=== PATIENT | female | born 1990 | race African-American/Black ===

== ENCOUNTER → 2017-08-09 | Outpatient (CLI) | payer OTHER ==
[~2017-08-09] MED LIST: IRON150C19 PO; ONDA4TAB PO; VITA-175 PO
--- NOTE | 2017-08-09 12:25 | RADIOLOGY IMAGING REPORT ---
FACILITY: [facility] PATIENT NAME: Maximo Borges : 1990 MR: [id number] V: [id number] EXAM DATE: ORDERING PHYSICIAN: GABRIELLE WARD TECHNOLOGIST: [place] [facility] [place] Patient: Maximo Borges : 1990 Visit/Account:[id number] Date of Sevice: 08/09/2017 PELVIC HISTORY: Fibroid seen on CT, pelvic pain and dysmenorrhea TECHNIQUE: Transabdominal ultrasound pelvis. COMPARISON: CT abdomen pelvis November 08, 2016 FINDINGS: Uterus: ; 7.4 cm length x 4.1 cm AP x 5.3 cm transverse. Myometrium: There is a 5.3 x 4.5 x 6.4 cm pedunculated fibroid projecting from the superior aspect of the uterine fundus. The stalk measures 2.1 cm in diameter.. Endometrium: Unremarkable; double thickness 3.8 mm. Cervix: Grossly negative. Ovaries: Right - 5.2 x 2.1 x 2.7 cm Left - 5.5 x 2 x 2.9 cm Blood flow is documented in each ovary by duplex Doppler ultrasound. Adnexa: Grossly unremarkable. Free pelvic fluid: None. IMPRESSION: There is a 5.3 x 4.5 x 6.4 cm pedunculated fibroid projecting along the superior aspect of the uterin e fundus as described above Report Dictated By: Diana Lopez MD at 08/09/2017 12:18 PM Report E-Signed By: Diana Lopez MD at 08/09/2017 12:21 PM WSN:[id number]
== END ==
LOC: US 03:20
PROVIDERS: ATTEND Nurse Practitioner Family
DX: D25.9 Leiomyoma of uterus, unspecified (principal)
CPT/HCPCS: 76856

== ENCOUNTER 2017-10-03 11:46 | Emergency (ER) | payer OTHER ==
[~2017-10-03 11:46] MED LIST changes: +IBUP800T37 PO; +LEVO1TAB31 PO; +MULT-865 PO
[2017-10-03 11:53] VITALS: BP 119/94
--- NOTE | 2017-10-03 12:07 | ER Report ---
History and Physical Time Seen By MD: 12:07 Hx. 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 PT STATES IT SOUNDED LIKE A BOMB WENT OFF. PT IS COMPLAINING OF RINGING IN RIGHT EAR AND RIGHT EYE TWITCHING. THIS HAPPENED YESTERDAY. PT INITALLY HAD A HEACHACHE BUT THAT HAS RESOLVED. HPI/ROS CHIEF COMPLAINT: Ringing in right ear HISTORY OF PRESENT ILLNESS: 27-year-old female patient presents to emergency room with complaint of ringing in her right ear. 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 Patient states that she had pain to the right ear, she had some twitching in her right eye. Patient states that she's not noted any vision changes in right eye. She states that she does have a persistent ringing. She is concerned about possible injury to the ear and decrease hearing. Patient denies having any fevers, chills, nausea, vomiting or diarrhea. Patient denies having any drainage from the ears. Allergies: Coded Allergies: No Known Drug Allergies (Unverified , 11/08/16) Home Meds Reported Medications Ibuprofen (IBUPROFEN) 800 Mg Tablet, 1 TAB PO Q8H, #30 TAB TAKE WITH FOOD EVERY 8 HOURS, DURING MENSES 08/23/17 Multivitamin (DAILY MULTIPLE VITAMIN) 1 Each Tablet, 1 TAB PO DAILY 08/23/17 Levonorgestrel-Eth Estradiol (AVIANE) 1 Each Tablet, 1 EACH PO DAILY 08/23/17 Vitamin B Complex (B COMPLEX) 1 Each Tablet, 1 EACH PO 11/08/16 Iron Polysaccharides Complex (POLYSACCHARIDE IRON 150) 150 Mg Capsule, 150 MG PO , CAPSULE 11/08/16 Past Medical/Surgical History Patient has a past medical history of iron deficiency anemia. Smoking Status: Never Smoker Hx Substance Use Disorder: No Hx Alcohol Use: No Constitutional Vital Sign - Last 24 Hours 10/03/17 10/03/17 11:53 12:33 Temp 97.5 Pulse 80 69 Resp 16 18 B/P (MAP) 119/94 Pulse Ox 99 96 O2 Delivery Room Air Physical Exam General appearance: Alert no distress. Respiratory: Chest is non tender, lungs are clear to auscultation. Cardiac: Regular rate and rhythm ENT: Tympanic membranes are pearly-solitario, the right tympanic membrane does appear to have some fluid behind it, left tympanic membrane has no abnormality. Auditory canals are patent bilaterally. DIFFERENTIAL DIAGNOSIS: After history and physical exam differential diagnosis was considered for damage to ears, hearing loss. Medical Decision Making ED Course/Re-evaluation ED Course Patient was admitted to an exam room, history and physical were obtained. Differential diagnoses were considered. On examination patient had some fluid behind the right ear, otherwise the exam was unremarkable. Patient had good hearing issues able to hear me and her stamina was talking to her. We did do a visual acuity, patient was 20/20 in the left eye and 20/30 in right eye. Patient states she normally wears glasses but she has lost them and so she is not wearing them recently. With the exam being unremarkable I believe the patient needs to follow-up with audiology. We discussed this with the patient. We'll go ahead and discharge her home. She is complaining of rest, avoid loud noises for the next several days and follow-up with audiology next week. Decision to Disposition Date: Oct 03, 2017 Decision to Disposition Time: 12:27 Depart Departure Latest Vital Signs Vital Signs Date Time Temp Pulse Resp B/P (MAP) Pulse Ox O2 Delivery O2 Flow Rate FiO2 10/03/17 12:33 69 18 96 10/03/17 11:53 97.5 119/94 Room Air Impression: Primary Impression: Ringing in right ear Condition: Improved Disposition: HOME OR SELF-CARE Patient Instructions: Tinnitus (ED) Additional Instructions: Follow up with Audiology Clinic at the [facility] [address] [address] [place] [id number] Get plenty of rest. Avoid loud music, TV, noises. Call to make an appointment. PALAK DEUTSCH Oct 03, 2017 12:07
== END 2017-10-03 12:30 | disposition home or self-care (01) ==
LOC: ER 12:00
DX: H93.11 Tinnitus, right ear (principal)
CPT/HCPCS: 99281